=== PATIENT | male | born 1965 | race Caucasian/White ===

== ENCOUNTER 2024-02-28 14:36 | Outpatient (CLI) | payer OTHER | END 2024-02-28 14:37 | disposition home or self-care (01) | LOC: CSHCT 14:36 | PROVIDERS: ATTEND Family Medicine | DX: Z12.2 Encounter for screening for malignant neoplasm of respiratory organs (principal); F17.210 Nicotine dependence, cigarettes, uncomplicated; Z87.09 Personal history of other diseases of the respiratory system; R91.8 Other nonspecific abnormal finding of lung field | CPT/HCPCS: 71271 ==

== ENCOUNTER 2024-03-10 18:13 | Emergency (ER) | payer OTHER ==
[2024-03-10] MEDS ORDERED: Fluorescein Opthalmic Strip ONE (18:48)
[2024-03-10] MEDS ORDERED: Tetracaine 0.5% PF 4 ML BOT ONE (18:49)
== END 2024-03-10 19:30 | disposition home or self-care (01) ==
LOC: CSHERS 18:13
DX: S00.211A Abrasion of right eyelid and periocular area, initial encounter (principal); F17.210 Nicotine dependence, cigarettes, uncomplicated; X58.XXXA Exposure to other specified factors, initial encounter
CPT/HCPCS: 99283